=== PATIENT | female | born 1990 | race Asian ===

== ENCOUNTER 2023-06-13 13:27 | Emergency (ER) | payer OTHER ==
[~2023-06-13] VITALS: Ht 157.5 cm; Wt 59.1 kg
[2023-06-13 13:34] VITALS: TEMP 98.3
[2023-06-13] MEDS ORDERED: ACETAMINOPHEN 325 MG TABLET PO ONE (14:15)
[2023-06-13] MEDS ORDERED: AMOX TR/POT CLAV 875 MG/125 MG TABLET PO ONE (14:15)
[2023-06-13] MEDS ORDERED: BACITRACIN 0.9 GM PACKET OINTMENT TP ONE (14:15)
[2023-06-13] MEDS ORDERED: AMOX1TAB16 PO (14:38)
[2023-06-13] MEDS ORDERED: IBUP-1492 PO (14:38)
[2023-06-13] MEDS ORDERED: BACI28.410 TP (14:38)
[2023-06-13 15:00] VITALS: BP 126/79; PULSE 85; RESP 12
== END 2023-06-13 15:54 | disposition home or self-care (01) ==
LOC: EMS 13:32
DX: S61.451A Open bite of right hand, initial encounter (principal); Z98.890 Other specified postprocedural states; W54.0XXA Bitten by dog, initial encounter; Y93.89 Activity, other specified; Y92.89 Other specified places as the place of occurrence of the external cause; Y99.8 Other external cause status
CPT/HCPCS: 99284; 73130-TC; Z7502; Z7610